=== PATIENT | male | born 1955 | race Caucasian/White ===

== ENCOUNTER 2022-09-12 11:14 | Day surgery (SDC) | payer OTHER ==
[~2022-09-12] VITALS: Ht 182.9 cm; Wt 88.2 kg
[2022-09-12] VITALS (9 sets, daily range): BP systolic 156–221; BP diastolic 71–126
[~2022-09-12 11:14] MED LIST: ACET325UDC PO; AMLO5 PO; Aspir 8181 MG PO; B-1100 M1 PO; BISA10S PR; BUPROPION XL150 M1 PO; CLOP75 PO; CONSTULOSE10 GM/15 M PO; CYCL10 PO; DOXA4 PO; Docusate S50 MG/5 ML PO; FAMO20 PO; FINA5 PO; FOLI1 PO; GABA300 PO; HYDCHL12.5 PO; HYDHCL25 PO; INSULANPEN SC; INSULIN LI100 UNIT/6 SC; LORA10ER PO; LOSARTAN POTAS100 M1 PO; METF500C PO; METH5 PO; METO25 PO; MIRALAX17 GM PO; MOTION RELIEF25 MG PO; NYSTATIN15 GM TOP; OXYC5 PO; PANT20 PO; PRAZ2 PO; Seroquel Xr50 MG PO; TAMS.4ER PO; VITAMIN D5000 UNIT PO; VOLTAREN UD; Venlafaxine HC150 MG PO
--- NOTE | 2022-09-12 13:40 | NUR ---
PATIENT ARRIVED TO ANXIOUS TO RECOVERY ROOM WITH HOB FLAT. L GROIN SITE WITH ANGIO SEAL C/D/I SOFT/NONTENDER, NO EVIDENCE OF HEMATOMA. BP ELEVATED, ADDITIONAL LABETALOL GIVEN. AT BEDSIDE.
--- NOTE | 2022-09-12 14:15 | NUR ---
HOB ELEVATED 30 DEGREES AT THIS TIME. L GROIN SITE C/D/I SOFT/NONTENDER, NO EVIDENCE OF BLEEDING.
--- NOTE | 2022-09-12 14:40 | NUR ---
PATIENT NAUSEATED AND COMPLAINING OF ABDOMINAL PAIN. PATIENT REQUESTING HOME MEDICATION OF METOCLOPRAMIDE ORAL SOLUTION. VO FROM DR WRIGHT RECEIVED. ORDER FAXED TO PHARMACY
--- NOTE | 2022-09-12 15:38 | NUR ---
PATIENT DISCHARGED HOME AT THIS TIME VIA WHEELCHAIR. L GROIN SITE C/D/I SOFT/NONTENDER, NO EVIDENCE OF HEMATOMA. VSS ON ROOM AIR. ALL PATIENT BELONGINGS AND PAPERWORK LEFT WITH PATIENT. NEW CONSENT SIGNED FOR NEXT PROCEDURE. PIV REMOVED WITHOUT DIFFICULTY, CATHETER INTACT. PATIENTS ABLE TO TRANSPORT PATIENT HOME.
== END 2022-09-12 15:40 | disposition home or self-care (01) ==
LOC: MHTC 11:14
DX: E11.51 Type 2 diabetes mellitus with diabetic peripheral angiopathy without gangrene (principal); I70.235 Atherosclerosis of native arteries of right leg with ulceration of other part of foot; L97.519 Non-pressure chronic ulcer of other part of right foot with unspecified severity; I12.9 Hypertensive chronic kidney disease with stage 1 through stage 4 chronic kidney disease, or unspecified chronic kidney disease; E11.22 Type 2 diabetes mellitus with diabetic chronic kidney disease; N18.32 Chronic kidney disease, stage 3b; K21.9 Gastro-esophageal reflux disease without esophagitis; E78.2 Mixed hyperlipidemia; Z87.891 Personal history of nicotine dependence; Z88.5 Allergy status to narcotic agent; Z88.8 Allergy status to other drugs, medicaments and biological substances; Z79.02 Long term (current) use of antithrombotics/antiplatelets; Z79.899 Other long term (current) drug therapy
CPT/HCPCS: 37225; 37229; 75625; 75716; 75774; 76937; 99152; 99153; A9270; C1714; C1760; C1769; C1887; C1894; C2623; J0360; J1644; J2250; J2405; J3010; J7030; J7050; Q9967

== ENCOUNTER 2023-02-13 18:04 | Emergency (ER) | payer OTHER ==
[~2023-02-13] VITALS: Ht 177.8 cm; Wt 127.0 kg
[2023-02-13 19:04] LABS: Albumin, Blood 3.1 g/dL (3.4-5.0); Albumin/Globulin Ratio 0.5 (0.8-1.8); Bilirubin, Total 0.6 mg/dL (0.1-1.0); Bun/Creatinine Ratio 15.1 (12.0-20.0); Calcium, Blood 9.1 mg/dL (8.5-10.1); Creatinine, Blood 0.99 mg/dL (0.60-1.20); Potassium, Blood 3.6 mmol/L (3.5-5.5); Total Protein, Blood 9.1 g/dL (6.4-8.2)
[2023-02-13 19:49] LABS: Source, Urine Straight Cath
[2023-02-13 19:54] LABS: Appearance, Urine Hazy (Clear); Bilirubin, Urine Neg (Neg); Blood, Urine 5+ (Neg); Glucose Qualitative, Urine 4+ (Neg); Ketones, Urine 2+ (Neg); Leukocyte Esterase, Urine 1+ (Neg); Nitrite, Urine Neg (Neg); Protein, Urine 3+ (Neg); Urobilinogen, Urine NORM (Normal)
[2023-02-13 19:58] LABS: Base Excess Venous -3.8 mmol/L; Bicarbonate Venous 21.8 mmol/L (24.0-30.0); PCO2 Venous 33.1 mmHg (38-42); pH Blood Venous 7.41 (7.34-7.37)
[2023-02-13 20:12] LABS: Color, Urine Pale Yellow (P-Yellow)
[2023-02-13 20:13] LABS: Amorphous Mod (0-Heavy); Bacteria Many /hpf; Mucus Light (0-Heavy); Squamous Epithelial Cells Rare /hpf (Few)
[2023-02-13 21:34] LABS: BASOPHILS ABSOLUTE AUTO 0.02 K/mm3 (0.00-0.23); BASOPHILS PERCENT AUTO 0 % (0-2); EOSINOPHILS PERCENT AUTO 0 % (0-6); Hematocrit 37.7 % (37.0-53.0); Hemoglobin 13.1 g/dL (13.5-17.5); IMMATURE GRAN ABSOLUTE AUTO 0.09 K/mm3 (0.00-0.10); IMMATURE GRAN PERCENT AUTO 1 % (0-1); LYMPHOCYTES ABSOLUTE AUTO 0.96 K/mm3 (0.84-5.20); LYMPHOCYTES PERCENT AUTO 6 % (21-46); MONOCYTES ABSOLUTE AUTO 0.77 K/mm3 (0.16-1.47); MONOCYTES PERCENT AUTO 5 % (4-13); Mean Corpuscular HGB 28.8 pg (26.0-34.0); Mean Corpuscular HGB Conc 34.7 g/dL (31.5-36.5); Mean Corpuscular Volume 83 fL (80-100); Mean Platelet Volume 10.6 fL (9.1-12.4); NEUTROPHILS ABSOLUTE AUTO 14.12 K/mm3 (1.96-9.15); NEUTROPHILS PERCENT AUTO 89 % (41-73); Platelet Count 250 K/mm3 (150-400); RDW Coefficient Variation 13.6 % (11.7-14.2); RDW Standard Deviation 40.7 fL (35.1-46.3); Red Blood Cell Count 4.55 M/mm3 (4.30-5.90); White Blood Cell Count 15.96 K/mm3 (4.00-11.30)
[2023-02-14] MEDS ORDERED: CEFD300 PO (00:30)
[2023-02-14 02:00] VITALS: BP 134/84
== END 2023-02-14 06:07 | disposition home or self-care (01) ==
LOC: ER 18:04
PROVIDERS: Emergency Medicine
DX: N39.0 Urinary tract infection, site not specified (principal); E87.1 Hypo-osmolality and hyponatremia; E11.65 Type 2 diabetes mellitus with hyperglycemia; R56.9 Unspecified convulsions; I10 Essential (primary) hypertension; E11.51 Type 2 diabetes mellitus with diabetic peripheral angiopathy without gangrene; F03.90 Unspecified dementia, unspecified severity, without behavioral disturbance, psychotic disturbance, mood disturbance, and anxiety; Z88.8 Allergy status to other drugs, medicaments and biological substances; Z88.5 Allergy status to narcotic agent; Z79.899 Other long term (current) drug therapy; Z87.891 Personal history of nicotine dependence
CPT/HCPCS: 51702; 70450; 74177; 80053; 81001; 82803; 82947; 83690; 84484; 85025; 93005; 93010; 96361-59; 96365-59; 96375-59; 96376-59; 99285-25; J0696; J1790; J1815; J3010; J7030; Q9967

== ENCOUNTER → 2023-09-03 | Outpatient (CLI) | payer OTHER ==
[~2023-09-03] MED LIST changes: +CEFD300 PO
[2023-09-03 19:06] LABS: Source, Urine Condom Cath
[2023-09-03 19:15] LABS: Appearance, Urine Cloudy (Clear); Bilirubin, Urine Neg (Neg); Blood, Urine 4+ (Neg); Color, Urine Yellow (P-Yellow); Glucose Qualitative, Urine Neg (Neg); Ketones, Urine Neg (Neg); Leukocyte Esterase, Urine 3+ (Neg); Nitrite, Urine Neg (Neg); Protein, Urine 2+ (Neg); Urobilinogen, Urine NORM (Normal)
[2023-09-03 19:31] LABS: Bacteria Many /hpf; Mucus Light (0-Heavy); Squamous Epithelial Cells Rare /hpf (Few); White Blood Cells, Urine TNTC /hpf (0-5); Yeast/Fungi Urine Mod /hpf
[2023-09-03 19:32] LABS: Transitional Epithelial Cells Rare /hpf (0-Rare)
== END ==
LOC: EDSTATUS 11:15 → LAB QU 16:28 → LAB 16:28
DX: N39.0 Urinary tract infection, site not specified (principal)
CPT/HCPCS: 81001; 87077; 87086; 87186

== ENCOUNTER → 2024-07-18 | Outpatient (CLI) | payer OTHER ==
[2024-07-18 18:23] LABS: Source, Urine Voided
[2024-07-18 18:47] LABS: Appearance, Urine Cloudy (Clear); Bilirubin, Urine Neg (Neg); Blood, Urine 4+ (Neg); Glucose Qualitative, Urine Neg (Neg); Ketones, Urine Neg (Neg); Leukocyte Esterase, Urine 3+ (Neg); Nitrite, Urine Pos (Neg); Protein, Urine 3+ (Neg); Specific Gravity, Urine 1.015 (1.003-1.022); Urobilinogen, Urine NORM (Normal)
[2024-07-18 19:02] LABS: Color, Urine Pale Yellow (P-Yellow)
[2024-07-18 19:03] LABS: Mucus Heavy (0-Heavy); White Blood Cells, Urine TNTC /hpf (0-5)
[2024-07-18 19:04] LABS: Bacteria Many /hpf; Squamous Epithelial Cells Rare /hpf (Few)
== END | disposition home or self-care (01) ==
LOC: LAB SHORT 18:19
PROVIDERS: Internal Medicine Hematology & Oncology
DX: N39.0 Urinary tract infection, site not specified (principal)
CPT/HCPCS: 81001; 87077; 87086; 87186

== ENCOUNTER → 2025-03-02 | Outpatient (CLI) | payer OTHER ==
[2025-03-02 16:55] LABS: Source, Urine Foley catheter
[2025-03-02 18:45] LABS: Bilirubin, Urine Neg (Neg); Color, Urine Yellow (P-Yellow); Glucose Qualitative, Urine Neg (Neg); Ketones, Urine Neg (Neg); Leukocyte Esterase, Urine 1+ (Neg); Protein, Urine 2+ (Neg); Specific Gravity, Urine 1.020 (1.003-1.022); Urobilinogen, Urine NORM (Normal)
== END ==
LOC: LAB 09:46 → LAB SHORT 09:46
PROVIDERS: Podiatrist
DX: E11.22 Type 2 diabetes mellitus with diabetic chronic kidney disease (principal); E31.9 Polyglandular dysfunction, unspecified
CPT/HCPCS: 81001; 87077; 87086; 87186